=== PATIENT | female | born 1955 | race Caucasian/White ===

== ENCOUNTER → 2023-10-28 07:43 | Outpatient (REF) | payer MEDICARE, SELFPAY | LOC: HWRAD 07:43 | PROVIDERS: ATTENDING PHYSICIAN Obstetrics & Gynecology; FAMILY PHYSICIAN Nurse Practitioner Family | DX: N95.0 Postmenopausal bleeding (principal) | CPT/HCPCS: 76830; 76856 ==

== ENCOUNTER 2023-12-12 15:50 | Emergency (ER) | payer MEDICARE, SELFPAY ==
[2023-12-12 15:57] VITALS: BP 180/105; BMI 23.2
[2023-12-12 17:41] VITALS: BP 146/83
--- NOTE | 2023-12-12 18:19 | ED.GENMED ---
History of Present Illness
General
Chief Complaint: Cough
Source: patient
Exam Limitations: none
Time Seen by Provider: 12/12/23 17:24
Nursing documentation reviewed up to this point in time: agreed with
Travel History
Have you had any contact with someone who has COVID-19?: No
Do you have any symptoms of coronavirus? Fever > 100 degrees, chills, cough, shortness of breath, sore throat, loss of taste or smell, muscle aches, or headache?: No
History of Present Illness
History of Present Illness:
68-year-old female with past medical history of asthma presents to the ER for evaluation. She has had a cough since last week which is gone progressively worse she has not been able to sleep was not because the cough. She had prednisone at home
and started herself on 10 mg of prednisone last night and has been using her Advair and Ventolin inhalers. She also had hysteroscopy and cervical biopsy yesterday by Dr. Choi.
This morning she woke up with a fever. She spoke to Dr Choi who is concerned and sent her to the ED to rule out infection related to procedures yesterday. She complains of small amount of vaginal bleeding which was expected she reports but no
discharge
She denies any abdominal pain vomiting. She felt little nauseous but because she thinks it is because of her coughing.
She did see her family doctor today who ordered a prescription of clarithromycin however she has not taken it yet.
Review of Systems
Review of Systems
Allergies reviewed?: Yes
All Other Systems: ROS reviewed and negative except as documented in HPI and ROS
Constitutional: Reports no symptoms and fever; Denies fatigue or chills
EENT: Reports no symptoms
Respiratory: Reports cough and trouble breathing
ABD/GI: Reports no symptoms; Denies abdominal pain, nausea, vomiting or diarrhea
: Reports bleeding
Musculoskeletal: Reports no symptoms
Skin: Reports no symptoms
Neurological: Reports no symptoms
Psychiatric: Reports no symptoms
Phy Exam
General Physical Exam
General Presentation: no apparent distress
General age: appears stated age
General Skin: warm and dry
General Habitus: normal
General Mental: alert
General Hydration: appears well hydrated
Cardiovascular Exam
Cardiovascular Exam: tachycardia
Pulmonary Exam
Pulmonary Exam: lungs clear, no respiratory distress and other (+cough )
Neurological Exam
Neurological Exam: alert
Course
Orders/Labs/Results
Orders:
Orders
12/12/23 16:03
CXR2 [CR Chest - 2 Views ] Urgent
Comment:
Reason For Exam: cough
12/12/23 18:24
Complete Blood Count/With Diff Urgent
Comprehensive Metabolic Panel Urgent
Lactate Level [Lactic Acid] Urgent
Blood Culture Q30M
ADELINE Source: Blood/Venous
Specimen Description:
12/12/23 18:26
Albuterol Nebs [Ventolin Nebules] 2.5 mg INH R NOW STA
12/12/23 18:29
Blood Culture Q30M
ADELINE Source: Blood/Venous
Specimen Description:
12/12/23 19:56
Ketorolac [Toradol] 15 mg IV NOW STA
12/12/23 19:59
0.9% Sodium Chloride 1000 ml [Nss] 1,000 ml IV BOLUS
12/12/23 20:11
COVID-19 Antigen Urgent
Source: Nasal Swab
12/12/23 20:12
Influenza A+B Rapid Molecular Urgent
ADELINE Source: Nasal Swab
Specimen Description:
12/12/23 20:29
Ipratropium/Albuterol Sulfate [Duoneb] 3 ml .ROUTE .STK-MED ONE
12/12/23 20:36
Ipratropium/Albuterol Sulfate [Duoneb] 3 ml INH R NOW ONE
Abnormal Lab Results
05/03/24
18:24
Absolute Lymphs (auto) 0.5 L 10^3/uL
(1.2-3.4)
Neutrophils % 84.1 H %
(42.2-75.2)
Lymphocytes % 8.4 L %
(20.5-51.1)
Sodium 134 L mmol/L
(135-145)
Glucose 125 H mg/dl
(70-99)
12/12/23 18:24
12/12/23 18:24
Vital Signs
Initial and Last Documented VS:
Initial Vital Signs
Temp Pulse Resp BP Pulse Ox
98.1 F 122 22 180/105 97
12/12/23 15:57 12/12/23 15:57 12/12/23 15:57 12/12/23 15:57 12/12/23 15:57
Last Documented Vital Signs
Temp Pulse Resp BP Pulse Ox
101 F H 106 28 117/70 96
12/12/23 17:41 12/12/23 19:15 12/12/23 19:15 12/12/23 19:15 12/12/23 19:15
MDM/Problems Addressed
MDM/Problems Addressed:
Patient is a 68-year female who presents to the ER for evaluation. Patient had a cough for the past 1 week wheezing congestion. She started herself on low-dose steroids as she has a history of asthma and has been using her inhalers. This morning
she developed a fever. Incidentally she had [employer] [employer] procedures yesterday (hysteroscopy and cervical biopsy) by Dr. Choi. Because of fever Dr. Choi sent her into the ER for evaluation she denies any abdominal pain. She denies any vaginal
discharge she has had some mild bleeding since procedures which is obviously likely normal. She however has had this cough and has a cough on exam. She was seen by family doctor given a prescription for antibiotics but did not start it yet. She
has a low-grade fever on exam however white count is normal and there are no acute findings of pneumonia on x-ray. Case reviewed with Dr. Corbett of [facility] as recommended pelvic exam was checked no purulent discharge from cervix patient is nontender
over the uterus we will hold off on imaging as discussed with [employer] [employer].
Patient received a second nebulizer treatment here COVID flu are negative . heart rate decreased. Patient still has cough however she has already been given a prescription for prednisone by her family doctor for the next 4 days antibiotics that we
had a discussion that not necessarily needed because there is no pneumonia on x-ray and her white count is normal. She also has inhalers at home.
Symptoms of fever cough consistent with bronchitis no concerning [employer] findings. d/c close f/u w/ pcp and [facility].
Chronic conditions affecting care:
asthma
*Radiology
Radiology exam reviewed: radiology read reviewed
*Pulse Oximetry
Patient hypoxic: no
*Critical Care Note
Total Time (30-74mins, 75-104mins- exclusive of procedures): Not Applicable
ED Attending Note
-
Portions of this chart may have been created with voice recognition software.� Occasional wrong word or��sound alike� substitutions may have occurred due to the inherent limitations of voice recognition software.
Discharge Plan
Departure
Patient Disposition: Home (Routine Discharge)
Date of Disposition: 12/12/23
Time of Disposition: 21:26
Patient with high blood pressure during this ER visit?: Yes
Condition: Fair
Covid-19: Negative COVID-19
Discharge Problem:
Bronchitis
Instructions: Acute Bronchitis, Adult (DC), BLOOD PRESSURE
Referrals:
Kamron Lacey MD [Family Provider] -
Activity Restrictions/Additional Instructions:
As discussed continue to use steroids as previously recommended and prescribed by your family doctor in addition to your inhalers. You may hold off on antibiotics if you wish as there is no acute findings of pneumonia on your chest x-ray. Your
labs were normal. Your gynecological exam was normal follow-up with your [facility] [employer] for reevaluation. Return if any worsening of symptoms including worsening fever shortness of breath, abdominal pain nausea vomiting vaginal discharge.
Follow-up with your family doctor next 2 days to ensure symptoms are improving
Interventions
Interventions:
*Risk Screen - Suicide Last Done: 12/12/23 15:57
*General Assessment Last Done: 12/12/23 17:41
*Neglect/Abuse Screening Last Done: 12/12/23 15:57
*ED COVID-19 Vaccine History Last Done: 12/12/23 15:57
ED- Pulmonary Assessment Last Done: 12/12/23 17:41
Discharge Date and Time
Print Language: CAMBODIAN
[2023-12-12] MEDS: VENTOLIN NEBULES 2.5 MG INH (18:32)
[2023-12-12 18:36] LABS: % Basophils 0.3 % (0-2); % Immature Granulocytes 0.2 % (0-0.5); % Lymphocytes 8.4 % (20.5-51.1); % Neutrophils 84.1 % (42.2-75.2); Absolute Lymphocytes 0.5 10^3/uL (1.2-3.4); Absolute Monocytes 0.4 10^3/uL (0.1-0.6); Absolute Neutrophils 5.3 10^3/uL (1.4-6.5); Hematocrit 38.8 % (37.0-47.0); Hemoglobin 12.9 g/dL (12.0-16.0); Mean Corp Hgb Conc. 33.2 g/dL (33.0-37.0); Mean Corpuscular Hgb 27.3 pg (27.0-31.0); Mean Corpuscular Volume 82.2 fL (81.0-99.0); Mean Platelet Volume 8.4 fL (7.4-10.4); Nucleated Red Blood Cells % 0 %; Platelet Count 213 10^3/uL (130-400); Red Blood Cell Count 4.72 10^6/uL (4.20-5.40); White Blood Cell Count 6.3 10^3/uL (4.8-10.8)
[2023-12-12 18:51] LABS: Lactic Acid 1.2 mmol/L (0.7-2.0)
[2023-12-12 18:55] LABS: ALT (SGPT) 28 U/L (0-35); AST (SGOT) 26 U/L (14-36); Albumin 4.6 g/dl (3.5-5.0); Alkaline Phosphatase 68 U/L (38-126); Blood Urea Nitrogen 15 mg/dl (7-17); Calcium 9.9 mg/dl (8.4-10.2); Carbon Dioxide 26 mmol/L (22-30); Chloride 101 mmol/L (98-107); Estimated Creatinine Clearance 79 ml/min; Glucose 125 mg/dl (70-99); Potassium 4.2 mmol/L (3.5-5.1); Sodium 134 mmol/L (135-145); Total Bilirubin 0.9 mg/dl (0.2-1.3); Total Protein 7.3 g/dl (6.3-8.2); eGFR > 60.00
[2023-12-12 19:15] VITALS: BP 117/70
[2023-12-12] MEDS: NSS 1000 IV (20:17)
[2023-12-12] MEDS: TORADOL 15 MG IV (20:17)
[2023-12-12] MEDS: DUONEB 3 ML INH (20:36)
[2023-12-12 20:37] LABS: COVID-19 Antigen Negative (Negative)
[2023-12-12 21:39] VITALS: BP 121/75
== END 2023-12-12 21:40 | disposition home or self-care (01) ==
LOC: EMR 15:50
PROVIDERS: Nurse Practitioner; EMERGENCY PHYSICIAN Emergency Medicine; FAMILY PHYSICIAN Family Medicine; REFERRING PHYSICIAN Obstetrics & Gynecology
DX: J40 Bronchitis, not specified as acute or chronic (principal); J45.909 Unspecified asthma, uncomplicated; R03.0 Elevated blood-pressure reading, without diagnosis of hypertension
CPT/HCPCS: 99284; 96374; 96361; 94640; 71046; 80053; 83605; 85025; 87040; 87502; 87811

== ENCOUNTER → 2024-01-13 07:48 | Outpatient (REF) | payer MEDICARE, SELFPAY | LOC: RAD 07:48 | PROVIDERS: ATTENDING PHYSICIAN Obstetrics & Gynecology; FAMILY PHYSICIAN Nurse Practitioner Family | DX: M85.9 Disorder of bone density and structure, unspecified (principal); Z78.0 Asymptomatic menopausal state; M89.9 Disorder of bone, unspecified | CPT/HCPCS: 77080 ==

== ENCOUNTER → 2024-09-22 08:45 | Outpatient (REF) | payer MEDICARE, SELFPAY | LOC: HWWDC 08:45 | PROVIDERS: ATTENDING PHYSICIAN Nurse Practitioner Family | DX: Z12.31 Encounter for screening mammogram for malignant neoplasm of breast (principal) | CPT/HCPCS: 77063; 77067 ==